=== PATIENT | male | born 1990 | race African-American/Black ===

== ENCOUNTER 2020-02-26 00:34 | Emergency (ER) | payer SELFPAY ==
[~2020-02-26] VITALS: Ht 172.7 cm; Wt 74.8 kg
--- NOTE | 2020-02-26 00:37 | NUR ---
PT MAGGI LIGHT. TAKEN TO BED 11
[2020-02-26 00:43] VITALS: BP 125/82
--- NOTE | 2020-02-26 00:46 | NUR ---
29 year old male biba for c/o midsternal chest pain that is radiating to rt arm x 2 hours. states taking LSD x 2 hours. denies sob/cough. denies headache/blurry vision. denies any other s/sx. pt is a/o x 3 to name time . awaiting MSE. pmhx: MDD, anxiety nka
--- NOTE | 2020-02-26 00:52 | NUR ---
Dr. Draper examining patient.
[2020-02-26 01:38] VITALS: BP 125/82
--- NOTE | 2020-02-26 01:38 | NUR ---
Patient discharged with v/s stable. Written and verbal after care instructions given and explained. Patient alert, oriented and verbalized understanding of instructions. Ambulatory with steady gait. All questions addressed prior to discharge. ID band removed. Patient advised to follow up with PMD. Rx of MOTRIN AND ATARAX given. Patient educated on indication of medication including possible reaction and side effects. Opportunity to ask questions provided and answered. Pt refused to sign discharge paperwork. discharge paperwork given to pt.
== END 2020-02-26 01:38 | disposition home or self-care (01) ==
LOC: MED 00:34
DX: F41.9 Anxiety disorder, unspecified (principal); R07.9 Chest pain, unspecified; F17.210 Nicotine dependence, cigarettes, uncomplicated
CPT/HCPCS: 93005; 99283